=== PATIENT | female | born 2000 | race Caucasian/White ===

== ENCOUNTER 2024-01-05 19:10 | Emergency (ER) | payer OTHER ==
[~2024-01-05] VITALS: Ht 170.2 cm; Wt 63.5 kg
[2024-01-05 19:21] VITALS: BP 134/65; PULSE 70; RESP 16; TEMP 98.2; O2SAT 97
[2024-01-05] MEDS ORDERED: OFLO5DRO4 LEFT EAR (19:56)
[2024-01-05] MEDS ORDERED: FLUT9.9S16 BOTHNSTRLS (19:56)
[2024-01-05] MEDS ORDERED: CETI1TAB MT (19:56)
[2024-01-05] MEDS ORDERED: FLUT9.9S BOTHNSTRLS (20:07)
== END 2024-01-05 21:14 | disposition home or self-care (01) ==
LOC: ER 19:10
DX: H72.92 Unspecified perforation of tympanic membrane, left ear (principal); Z79.899 Other long term (current) drug therapy
CPT/HCPCS: 99283